=== PATIENT | female | born 1940 | race Caucasian/White ===

== ENCOUNTER 2020-04-23 22:38 | Emergency (ER) | payer MEDICARE ==
[~2020-04-23] VITALS: Ht 165.1 cm; Wt 63.0 kg
--- NOTE | 2020-04-23 23:48 | PHYS DOC ---
General Adult EDM: Chief Complaint: ABDOMINAL PAIN HPI: HPI: Patient is a 79-year-old female coming in for multiple complaints of predominantly abdominal pain, distention and constipation. 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 She states she normally takes a bowel regimen of multiple medications including mag citrate every 36-48 hours but has not had a bowel movement in the past 3 days. She had some nausea but no vomiting. Patient states that when she was laying down tonight she got up and felt lightheaded and shaky. She checked her blood sugar and it was "high for me". Blood pressure was 160s over 70s. She states her systolic is usually in the 120s. She has a follow-up with a GI surgeon in 9 days. Denies any changes with urination, fevers, cough. No known sick contacts Review of Systems: Review of Systems: Constitutional: Denies fever or chills Eyes: Denies change in visual acuity HENT: Denies nasal congestion or sore throat Respiratory: Denies cough or shortness of breath Cardiovascular: Denies chest pain or edema GI: Abdominal pain and distention, constipation, nausea without vomiting. Den ies any blood in her stools or rectal pain : Denies dysuria Musculoskeletal: Denies back pain or joint pain Integument: Denies rash Neurologic: Denies headache, focal weakness or sensory changes Endocrine: Denies polyuria or polydipsia Lymphatic: Denies swollen glands Psychiatric: Denies depression or anxiety Allergies: Allergies: Allergies Coded Allergies Type Severity Reaction Last Updated Verified No Known Drug Allergies 04/23/20 No Physical Exam: PE: Constitutional: Well developed, well nourished, no acute distress, non-toxic appearance. [] HENT: Normocephalic, atraumatic, bilateral external ears normal, oropharynx moist, no oral exudates, nose normal. [] Eyes: PERRLA, EOMI, conjunctiva normal, no discharge. [] Neck: Normal range of motion, no tenderness, supple, no stridor. [] Cardiovascular:Heart rate regular rhythm, no murmur [] Lungs & Thorax: Bilateral breath sounds clear to auscultation [] Abdomen: Abdomen full but not tight, diffuse tenting and guarding to palpation no focal tenderness Skin: Warm, dry, no erythema, no rash. [] Back: No tenderness, no CVA tenderness. [] Extremities: No tenderness, no cyanosis, no clubbing, ROM intact, no edema. [] Neurologic: Alert and oriented X 3, normal motor function, normal sensory function, no focal deficits noted. [] Psychologic: Affect normal, judgement normal, mood normal. [] EKG: EKG: [] Radiology/Procedures: Radiology/Procedures: NDICATION: Reason: obstruction, abnormal colonoscopy 1 mth ago, pain: Omni 300 60cc / Spl. Instructions: / History: . COMPARISON: November 2010 TECHNIQUE: Axial CT images obtained through the abdomen and pelvis with contrast. One or more of the following individualized dose reduction techniques were utilized for this examination: 1. Automated exposure control; 2. Adjustment of the mA and/or kV according to patient size; 3. Use of iterative reconstruction technique. FINDINGS: Multifocal plaque throughout the vasculature. Gallbladder is contracted. Mild prominence of some of the intrahepatic bile ducts. Liver is mildly low attenuation. There is a couple low-density lesions within the liver with the larger one having the appearance of the cyst and the other 2 small to characterize but a common finding. No peripancreatic fluid collection. Spleen unremarkable. No hydronephrosis. Low-density lesion within the left kidney which measures less than a centimeter. This is a common finding and is too small to characterize but most commonly from small cyst. No hydronephrosis. Urinary bladder is partially distended. Colonic diverticulosis. The colon is distended with intraluminal content which appears liquid. For example cecum measures up to about 68 mm. Degenerative changes the spine with multilevel central canal and neural foraminal stenosis with mild scoliotic curvature. Osseous demineralization. Grade 1 anterolisthesis of L3 on 4 with mild retrolisthesis of L2 on 3. IMPRESSION: * Distention of the colon with intraluminal content. Causes such as colonic ileus as well as liquid stool could have this appearance. * Liver is low density which can be seen with fatty infiltration. * No hydronephrosis. * Osseous demineralization throughout the visualized osseous structures.[] Heart Score: Risk Factors: Risk Factors: DM, Current or recent (<one month) smoker, HTN, HLP, family history of CAD, obesity. Risk Scores: Score 0 - 3: 2.5% MACE over next 6 weeks - Discharge Home Score 4 - 6: 20.3% MACE over next 6 weeks - Admit for Clinical Observation Score 7 - 10: 72.7% MACE over next 6 weeks - Early Invasive Strategies Course & Med Decision Making: Course & Med Decision Making Pertinent Labs and Imaging studies reviewed. (See chart for details) Patient had 2 bowel movements in the emergency department and states she is feeling better, eager to go home. [] Dragon Disclaimer: Dragon Disclaimer: This electronic medical record was generated, in whole or in part, using a voice recognition dictation system. Departure Departure: Impression: Primary Impression: Ileus Disposition: 01 DC HOME SELF CARE/HOMELESS Condition: IMPROVED Referrals: JACQUELINE AG (PCP) Patient Instructions: Constipation, Adult Additional Instructions: May use enema once a day. Once enema is injected try to hold for at least 15 to 20 minutes Scripts Metoclopramide Hcl (REGLAN) 10 Mg Tablet 1 TAB PO PRN Q6-8HRS PRN for CONSTIPATION for 10 Days, #20 TAB 0 Refills before food and bedtime Prov: RASHAD JACOBSEN MD 04/24/20 RASHAD JACOBSEN MD Apr 23, 2020 23:48
[2020-04-24] MEDS ORDERED: IOHEXOL 300 MG/ML 75 ML VIAL. IV ONE (00:30)
[2020-04-24] MEDS ORDERED: CONTRAST GIVEN. MC PRN (00:30)
[2020-04-24 00:55] LABS: BASO % 1 % (0-3); EOS # 0.1 x10^3/uL (0.0-0.7); EOS % 2 % (0-3); HEMATOCRIT 39.1 % (36.0-47.0); HEMOGLOBIN 13.1 g/dL (12.0-15.5); LYMPH # 1.6 x10^3/uL (1.0-4.8); LYMPH % 31 % (24-48); MEAN CORPUSCULAR HEMOGLOBIN 31 pg (25-35); MEAN CORPUSCULAR HGB CONC 34 g/dL (31-37); MEAN CORPUSCULAR VOLUME 91 fL (79-100); MONO # 0.6 x10^3/uL (0.0-1.1); MONO % 12 % (0-9); NEUT # 2.8 x10^3uL (1.8-7.7); NEUT % 55 % (31-73); PLATELET COUNT 257 x10^3/uL (140-400); RED BLOOD COUNT 4.29 x10^6/uL (3.50-5.40); RED CELL DISTRIBUTION WIDTH 13.3 % (11.5-14.5); WHITE BLOOD COUNT 5.2 x10^3/uL (4.0-11.0)
[2020-04-24 01:14] LABS: BILIRUBIN,URINE NEG (NEG); CLARITY,URINE CLEAR; COLOR,URINE YELLOW; GLUCOSE,URINE NEG (NEG)
[2020-04-24 01:15] LABS: BACTERIA,URINE 0 /HPF (0-FEW); NITRITE,URINE NEG (NEG); RBC,URINE OCC /HPF (0-2); SQUAMOUS EPITHELIAL CELL,UR OCC /LPF; UROBILINOGEN,URINE 0.2 mg/dL (0.2 mg/dL); WBC,URINE OCC /HPF (0-4)
[2020-04-24 01:32] LABS: CALCIUM 9.9 mg/dL (8.5-10.1); CREATININE 1.1 mg/dL (0.6-1.0); GFR 48.2; POTASSIUM 3.9 mmol/L (3.5-5.1)
[2020-04-24 01:45] LABS: ALBUMIN/GLOBULIN RATIO 1.1 (1.0-1.7); MAGNESIUM 2.7 mg/dL (1.8-2.4); TOTAL BILIRUBIN 0.4 mg/dL (0.2-1.0); TOTAL PROTEIN 7.6 g/dL (6.4-8.2)
--- NOTE | 2020-04-24 02:52 | RAD ---
INDICATION: Reason: obstruction, abnormal colonoscopy 1 mth ago, pain: Omni 300 60cc / Spl. Instructi ons: / History: . COMPARISON: November 2010 TECHNIQUE: Axial CT images obtained through the abdomen and pelvis with contrast. One or more of the following individualized dose reduction techniques were utilized for this examinat ion: 1. Automated exposure control; 2. Adjustment of the mA and/or kV according to patient size; 3 . Use of iterative reconstruction technique. FINDINGS: Multifocal plaque throughout the vasculature. Gallbladder is contracted. Mild prominence of some of the intrahepatic bile ducts. Liver is mildly low attenuation. There is a couple low-density lesions within the liver with the larg er one having the appearance of the cyst and the other 2 small to characterize but a common finding. No peripancreatic fluid collection. Spleen unremarkable. No hydronephrosis. Low-density lesion within the left kidney which measures less than a centimeter. T his is a common finding and is too small to characterize but most commonly from small cyst. No hydronephrosis. Urinary bladder is partially distended. Colonic diverticulosis. The colon is distended with intraluminal content which appears liquid. For example cecum measures up to about 68 mm. Degenerative changes the spine with multilevel central canal and neural foraminal stenosis with mild scoliotic curvature. Osseous demineralization. Grade 1 anterolisthesis of L3 on 4 with mild retrolisthesis of L2 on 3. IMPRESSION: * Distention of the colon with intraluminal content. Causes such as colonic ileus as well as liquid stool could have this appearance. * Liver is low density which can be seen with fatty infiltration. * No hydronephrosis. * Osseous demineralization throughout the visualized osseous structures. Electronically signed by: Himanshu Mccloud MD (04/24/2020 2:49 AM) [id number]
[2020-04-24] MEDS ORDERED: METOCLOPRAMIDE HCL 10 MG/2 ML VIAL. IVP ONE (03:30)
[2020-04-24] MEDS ORDERED: BISACODYL 10 MG SUPP.RECT PR ONE (03:30)
[2020-04-24] MEDS ORDERED: METO10TA81 PO (04:24)
[2020-04-24 04:42] VITALS: BP 132/65
== END 2020-04-24 04:42 | disposition home or self-care (01) ==
LOC: ER 22:38
DX: K56.7 Ileus, unspecified (principal)
CPT/HCPCS: 36415; 74177; 80053; 81001; 83605; 83690; 83735; 83880; 84484; 85025; 87086; 96374; 99285; J2765; Q9967